=== PATIENT | male | born 1950 | race Caucasian/White ===

== ENCOUNTER 2019-05-15 13:14 | Emergency (ER) | payer OTHER ==
[~2019-05-15] VITALS: Ht 152.4 cm; Wt 71.7 kg
[2019-05-15 13:17] VITALS: Ht 152.4 cm; Wt 71.7 kg
[2019-05-15 14:05] LABS: BASOPHIL % 0.4 % (0-2); PLATELET COUNT 151 x10^3mcL (130-400); RED CELL DISTRIBUTION WIDTH 13.7 % (11.5-14.5)
[2019-05-15 14:20] LABS: CALCIUM 8.2 mg/dL (8.5-10.1); CARBON DIOXIDE 30.5 mmol/L (21-32); CHLORIDE SERUM 101 mmol/L (98-107); CREATININE SERUM 1.2 mg/dL (0.7-1.3); GFR1 > 60 mL/min; GLUCOSE SERUM 93 mg/dL (74-106); POTASSIUM SERUM 3.8 mmol/L (3.5-5.1); SODIUM SERUM 137 mmol/L (136-145)
[2019-05-15 14:25] LABS: ALBUMIN 3.5 g/dL (3.4-5.0); ALKALINE PHOSPHATASE 56 U/L (46-116); ALT/SGPT 41 U/L (16-63); AST/SGOT 47 U/L (15-37); BILIRUBIN TOTAL 0.47 mg/dL (0.20-1.00); TOTAL PROTEIN, SERUM 7.5 g/dL (6.4-8.2)
[2019-05-15 15:10] VITALS: BP 122/69
== END 2019-05-15 15:10 | disposition home or self-care (01) ==
LOC: ED 13:14
DX: R55 Syncope and collapse (principal); J06.9 Acute upper respiratory infection, unspecified
CPT/HCPCS: 36415; Q0092